=== PATIENT | female | born 1995 | race Caucasian/White ===

== ENCOUNTER 2018-03-22 22:42 | Emergency (ER) | payer OTHER ==
[~2018-03-22] VITALS: Ht 172.7 cm; Wt 61.2 kg
[2018-03-22 22:42] VITALS: BP 135/75
--- NOTE | 2018-03-22 23:50 | NUR ---
Pt came in c/o "aura", worried that she might have a sezure episode. Pt has hx of epilepsy and is currently getting rehab treatment for heroine abuse in [place]. She is A, O/4, walks without the need for assistance, on RA, anxious.
[2018-03-22] MEDS ORDERED: LORAZEPAM 1 MG TABLET ONE (23:56)
[2018-03-22] MEDS ORDERED: PHENYTOIN EXTENDED RELEASE 100 MG CAPSULE PO ONE (23:58)
[2018-03-22] MEDS ORDERED: GABAPENTIN 300 MG CAPSULE ONE (23:59)
[2018-03-23] MEDS ORDERED: PHENYTOIN EXTENDED RELEASE 100 MG CAPSULE PO ONE
[2018-03-23] MEDS ORDERED: LORAZEPAM 1 MG TABLET PO ONE
[2018-03-23] MEDS ORDERED: GABAPENTIN 100 MG CAPSULE PO ONE
== END 2018-03-23 00:31 | disposition home or self-care (01) ==
LOC: ER 22:50
DX: F41.9 Anxiety disorder, unspecified (principal); G40.909 Epilepsy, unspecified, not intractable, without status epilepticus; F17.200 Nicotine dependence, unspecified, uncomplicated; Z88.5 Allergy status to narcotic agent
CPT/HCPCS: A4606; Z7610